=== PATIENT | female | born 1940 | race Hispanic/Latino ===

== ENCOUNTER 2017-03-27 09:35 | Day surgery (SDC) | payer MEDICARE, BC ==
[2017-03-27] MEDS ORDERED: Lidocaine 1% Inj (20ml) ONE (10:12)
[2017-03-27] MEDS ORDERED: ceFAZolin IV 2 gm in Dextrose 0 GM/0 ML BAG IVPB ONE (10:12)
[2017-03-27] MEDS ORDERED: Iohexol 240 (50 ml) ONE (10:12)
[2017-03-27] MEDS ORDERED: Propofol 10 mg/ml Inj (20 ML) ONE (10:35)
[2017-03-27] MEDS ORDERED: Rocuronium 10 mg/ml (5 ml) ONE (10:37)
[2017-03-27] MEDS ORDERED: ceFAZolin IV 1 gm in Dextrose 1 GM/50 ML BAG IVPB ONE (11:13)
[2017-03-27] MEDS ORDERED: Lactated Ringer's 1,000 ML IV ONE ×2 (11:25→12:35)
[2017-03-27] MEDS ORDERED: Iodixanol 320 MG/ML 200 ML BOTTLE IV ONE (11:33)
[2017-03-27 11:56] VITALS: BMI 24.5
[2017-03-27] MEDS ORDERED: Neostigmine Methylsulfate 3mg/3ml Syringe IV ONE (12:24)
[2017-03-27] MEDS ORDERED: Labetalol 25mg/5ml Syringe ONE (12:50)
[2017-03-27] MEDS ORDERED: HYDROmorphone 0.5 mg/0.5 ml ISec IVP PRN (13:25)
--- NOTE | 2017-03-27 13:25 | PCM.SURG1 ---
Surgeon's Initial Post Op Note - Surgeon's Notes Surgeon: Dr. [place] Guide: Monse PGY1 Type of Anesthesia: General Endo Pre-Operative Diagnosis: Biliary colic, Cholelithiasis Operative Findings: see operative report Post-Operative Diagnosis: Biliary colic, Cholelithiasis Operation Performed: Laparoscopic Cholecystectomy with Intraoperative Cholangiogram Specimen/Specimens Removed: Gallbladder with stone Estimated Blood Loss: EBL {In ML}: 15 Blood Products Given: N/A Drains Used: No Drains Post-Op Condition: Good Date of Surgery/Procedure: 03/27/17 Time of Surgery/Procedure: 11:45
[2017-03-27] MEDS ORDERED: Oxycodone/Acetaminophen 5/325 mg Tab PO PRN (13:26)
[2017-03-27 15:07] VITALS: O2SAT 97
[2017-03-27 15:31] VITALS: RESP 18
[2017-03-27 15:53] VITALS: BP 137/82; PULSE 63; TEMP 97
--- NOTE | 2017-03-27 23:36 | OP ---
PROCEDURE DATE: 03/27/2017 PREOPERATIVE DIAGNOSES: Cholecystitis and cholelithiasis. POSTOPERATIVE DIAGNOSES: Cholecystitis and cholelithiasis. PROCEDURE CARRIED OUT: Laparoscopic cholecystectomy with C-arm cholangiogram. SURGEON: Zackary Valencia Jr., MD INSOLE CHANNELER: Dr. Garner, resident. ANESTHESIOLOGIST: Mr. Dario Pennington. INDICATIONS: The patient is a 76-year-old woman with abdominal pain, found to have gallstones on ultrasound exam. Subsequent CAT scan did not confirm this. Also, the patient recently had episode of shingles affecting the right side of the upper abdomen. The different diagnoses reviewed with the patient and also these findings. OPERATIVE FINDINGS: Cholangiogram carried out in the cystic duct showed free flow into the duodenum and good visualization of the hepatic radicles. There appeared to be a fibrous cap on the top of the gallbladder, which was somewhat firm in . I did not palpate gallstones in the distended gallbladder, but I did not open the specimen. There were adhesions in the midline from previous pelvic surgery. Apart from this, the rest of the abdominal exploration was unremarkable. PROCEDURE IN DETAIL: The patient was given general anesthesia, intravenous antibiotics, Venodyne boots were applied. Burt trocar was inserted via cut-down technique. Subsequently, two additional 5-mm trocars were placed in cystic duct, cystic artery and view of safety was obtained. The cystic duct was clipped and the cholangiogram carried out as mentioned. We then carried out a cholangiogram with the above-mentioned findings, a free flow into the duodenum, good visualization of the hepatic radicles, and no evidence of any stones or strictures. We then clipped the cystic artery. We removed the gallbladder, had minimal bleeding with a total blood loss of less than 15 mL and the umbilical port was closed with interrupted sutures and the skin was closed with subcuticular closure. Operation carried out, laparoscopic cholecystectomy with C-arm cholangiogram. Zackary Valencia Jr., MD cc: Iain Girard MD
--- NOTE | 2017-03-28 08:00 | RAD ---
PROCEDURE: Intraoperative Fluoroscopy. HISTORY: GALLBLADDER STONES FINDINGS: Fluoroscopic assistance was provided for cholangiogram. Please refer
== END 2017-03-27 16:36 | disposition home or self-care (01) ==
LOC: C.SDS 09:35
PROVIDERS: ATTEND Surgery Vascular Surgery
DX: K80.10 Calculus of gallbladder with chronic cholecystitis without obstruction (principal)
CPT/HCPCS: 47563; 88304; J0690; J1100; J1170; J2405; J2704; J2710; J2765; J3010; J7040; J7120; Q9966